=== PATIENT | male | born 1990 | race Caucasian/White ===

== ENCOUNTER 2020-06-03 08:46 | Outpatient (CLI) | payer OTHER, SELFPAY ==
--- NOTE | 2020-06-24 03:07 | WPDHOMESLEEP ---
Sleep Study - Home Unattended Date of Study: 06/03/20 Ordering Provider: Johnny Brown MD Interpreting Physician: Sharita Epps MD Home Sleep Study Type: Watch PAT Height: 1.7 m Weight: 86.183 kg Body Mass Index: 29.7 Neck Circumference (inches): 17 [place]: 12 Reason for Sleep Study insomnia, never feels rested Sleep History Jose Denis is a 30 year-old male who has a difficult time falling asleep and staying asleep. He never feels rested. He has racing thoughts at night. He has depression and anxiety. He occasionally snores and it occasionally is loud enough to bother others. He does not awaken at night with heartburn, belching or coughing. He rarely awakens from sleep feeling short of breath. He has a difficult time waking in the morning. He occasionally has trouble sleeping with a cold. He rarely wakes up gasping for breath at night. He rarely has breathing problems at night reported to him by others. He occasionally sweats excessively at night and occasionally notices his heart pounding or beating irregularly at night. He occasionally falls asleep during the day, rarely involuntarily occasionally while driving. He does not fall asleep during physical effort. He rarely has loss of muscle tone with strong emotion. He rarely has daytime difficulty at work due to excessive sleepiness. 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 He occasionally feels paralyzed on waking or falling asleep. Does not have vivid dreamlike scenes upon awakening or falling asleep. He has never for a to go to sleep. He does not have nightmares. He constantly has racing thoughts through his mind, feelings of sadness depression and anxiety. He rarely has muscular tension, rarely notices parts of his body jerking and rarely kicks at night. He occasionally has crawling and aching feelings in his legs. He rarely has leg pain at night. He does not have morning jaw pain and does not grind his teeth during sleep. He occasionally has bothered by pain during the day, occasionally is awakened by pain at night, occasionally wakes up feeling stiff in the morning with sore, achy muscles, rarely with pain in the neck and spine. He has headaches, palpitations, fatigue, memory problems, insomnia and concentration difficulties. Normal bedtime is 12 midnight taking an hour or longer to fall asleep, typically waking 3 times at night for 30 minutes. While awake, he will go urinate, eat, and try to get back to sleep. He wakes in the morning at 7:00 a.m. He estimates 5 hours of sleep at night. On the weekends, he stays awake as late as 3:00 a.m. still wakes at 7:00 a.m.. He takes naps in the afternoon. He is not refreshed after a short nap. He is usually drowsy in the morning for 3 hours or longer. Habits: Cigarettes 1-2 packs per day. Caffeine 3 servings a day. Alcohol once a week. No recreational drugs. [facility] Past Medical History Medical History (Updated 06/24/20 @ 03:15 by Sharita Epps MD) Anxiety Daytime sleepiness Decreased libido Depression Surgical History Surgical History (Updated 06/24/20 @ 03:16 by Sharita Epps MD) History of tonsillectomy Family History Family History Grandparent Malignant neoplasm of prostate, Onset Age: 72 Family history of lung cancer, Onset Age: 72 Family history of malignant neoplasm of bone, Onset Age: 72 Father Family history of malignant melanoma Social History Social History Smoking status: Current every day smoker Alcohol intake: current Medications Home Medications Medication Instructions Recorded Confirmed Type No Home Medications 03/25/20 03/25/20 History Sleep Procedure The sleep study was completed using C2[employer] LinkT a technically adequate device with seven channels: peripheral arterial tone, actigraphy, body position, snore, respiratory movement, pulse oximetry, sleep st
[2020-06-24 03:50] VITALS: BMI 29.7
== END 2020-06-03 08:47 | disposition home or self-care (01) ==
LOC: ANHCSM 08:47
PROVIDERS: PCP Family Medicine; Visit Provider Family Medicine
DX: G47.00 Insomnia, unspecified (principal); R40.0 Somnolence
CPT/HCPCS: 95800

== ENCOUNTER 2020-10-28 20:19 | Emergency (ER) | payer OTHER, SELFPAY ==
--- NOTE | ~2020-10-28 | CT_ITS ---
EXAMINATION: CT abdomen pelvis wo con DATE: 10/28/2020 23:56 INDICATION: Right flank pain for 2 weeks TECHNIQUE: Computed tomography (CT) of the abdomen and pelvis was performed without intravenous contr ast. Automated exposure control and iterative reconstruction technique were employed. Exam dose: 709 .58 mGy-cm total exam DLP. COMPARISON: None. FINDINGS: Approximately 5 mm nodular density is noted in each of the lower lobes. No infiltrate or co nsolidation at the lung bases. Normal heart size. No pericardial or pleural effusion. The gallbladder is contracted. No bile duct or pancreatic duct dilatation. No hepatic, splenic, pancr eatic, adrenal or renal space-occupying mass lesion. No urinary tract calculus or hydroureteronephros is. The urinary bladder is evacuated. Prostate gland is normal. Normal caliber of the abdominal aorta. No intraperitoneal or retroperitoneal or pelvic mass lesion or adenopathy or ascites. Normal appendix. No bowel obstruction, bowel wall thickening, pneumatosis or intraperitoneal free air . Included skeletal structures are unremarkable. IMPRESSION: 5 mm nodular density in each lower lobe No significant abnormality abdomen. No urinary tract calculi, hydroureteronephrosis Normal appendix Reviewed, dictated and finalized at [facility]. Reviewed, dictated and finalized at [facility]. IMPRESSION: 5 mm nodular density in each lower lobe No significant abnormality abdomen. No urinary tract calculi, hydroureteronephr osis Normal appendix
[2020-10-28 20:31] VITALS: BP 127/78; PULSE 114; RESP 18; TEMP 36.2; O2SAT 96
[2020-10-28 22:49] LABS: Add Urine Microscopic? YES; Appearance Urine Cloudy (Clear); Bacteria Urine Trace /hpf; Bilirubin Urine Negative (Negative); Color Urine Yellow (Yellow); Glucose Urine UA 3+ mg/dL (Negative); Ketones Urine Negative (Negative); Leukocyte Esterase Ur 3+ LEU/UL (Negative); Mucus Urine Moderate /lpf; Nitrate Urine Negative (Negative); Protein Urine 1+ mg/dL (Negative); Specific Grav Ur 1.026 (1.001-1.035); Squamous Epithelial Cell Urine Rare /hpf (Few); Uric Acid Crystals Urine Present /hpf; Urobilinogen Urine Negative mg/dL (<2.0); WBC Urine >75 /hpf
[2020-10-28 22:53] LABS: Blood Urine Negative (Negative)
--- NOTE | 2020-10-28 23:53 | ED.GENADULT ---
HPI - General Adult General Chief complaint: Urogenital-Male <Sebastian Pitts PA-C - Last Filed: 10/29/20 01:01> Stated complaint: right flank pain <DO Morrow Last Filed: 10/29/20 01:01> Time Seen by Provider: 10/28/20 23:43 <DO Morrow Last Filed: 10/29/20 01:01> Source: patient <DO Morrow Last Filed: 10/29/20 01:01> Mode of arrival: ambulatory <Sebastian Pitts PA-C - Last Filed: 10/29/20 01:01> Limitations: no limitations <DO Morrow Last Filed: 10/29/20 01:01> History of Present Illness HPI narrative: Patient is a 30-year-old male who presents to emergency department for evaluation of right side pain for the last 2 weeks off and on noting a aching dull pain in the right flank patient denies similar occurrence in the past patient on arrival is in no distress notes he has been taking ibuprofen for relief patient does not take any medications daily denies any medical history. Patient on arrival in no distress pain is worse with urination <Sebatsian Pitts PA-C - Last Filed: 10/29/20 01:01> Related Data Allergies/adverse reactions: Allergies Allergy/AdvReac Type Severity Reaction Status Date / Time No Known Allergies Allergy Mild Verified 03/25/20 13:43 <DO Morrow Last Filed: 10/29/20 01:01> Review of Systems Review of Systems: All systems reviewed & are unremarkable except as noted in HPI and below <Sebastian Pitts PA-C - Last Filed: 10/29/20 01:01> PMFSH Past Medical History Medical History: Medical History Anxiety Daytime sleepiness Decreased libido Depression <DO Morrow Last Filed: 10/29/20 01:01> Surgical History Surgical History: Surgical History History of tonsillectomy <DO Morrow Last Filed: 10/29/20 01:01> Family History Family History: Family History Grandparent Malignant neoplasm of prostate, Onset Age: 72 Family history of lung cancer, Onset Age: 72 Family history of malignant neoplasm of bone, Onset Age: 72 Father Family history of malignant melanoma <Sebastian Pitts PA-C - Last Filed: 10/29/20 01:01> Social History Social History: Social History Smoking status: Current every day smoker Alcohol intake: current <Sebastian Pitts PA-C - Last Filed: 10/29/20 01:01> Exam Narrative: Exam Narrative: GENERAL: Well-appearing, well-nourished, and in no acute distress. HEAD: Normocephalic, atraumatic. EYES: PERRLA and EOMI. ENT: Nares clear, no rhinorrhea or epistaxis. Mucous membranes moist. CHEST: Clear to auscultation. No respiratory distress. No wheezes rales or rhonchi HEART: Regular rate and rhythm. No murmur heard. Normal peripheral pulses. ABDOMEN: Soft, mild tenderness of the right abdomen without rebound or guarding, nondistended EXTREMITIES: Normal range of motion. No edema. SKIN: Warm, dry, no rash. NEURO: No focal deficits. Alert and oriented x3. Cranial nerves II through XII grossly intact PSYCH: Normal mood and affect. <Sebastian Pitts PA-C - Last Filed: 10/29/20 01:01> Course Course Emergency Course: Patient evaluated in the emergency department will be treated for urinary tract infection referred to urology for further evaluation patient agrees with this plan afebrile nontoxic-appearing was given IV fluids and antibiotics in the emergency department prior to discharge and given reasons to return <Sebastian Pitts PA-C - Last Filed: 10/29/20 01:01> Vital Signs Vital signs: Vital Signs Temperature 97.1 F L 10/28/20 20:31 Pulse Rate 114 H 10/28/20 20:31 Respiratory Rate 18 10/28/20 20:31 Blood Pressure 127/78 10/28/20 20:31 P
[2020-10-29 00:21] LABS: Alanine Aminotransferase 26 U/L (4-50); Albumin Level 4.6 g/dL (3.5-5.1); Alkaline Phosphatase 88 U/L (38-126); Anion Gap 6 mmol/L (8-16); Aspartate Amino Transferase 23 U/L (17-59); Basophils Absolute Auto 0.1 K/mm3 (0.0-0.1); Basophils Percent Auto 0.4 % (0.2-1.2); Bilirubin,Total 0.1 mg/dL (0.2-1.3); Blood Urea Nitrogen 20 mg/dL (9-20); Calcium 9.7 mg/dL (8.4-10.2); Carbon Dioxide 27 mmol/L (22-30); Chloride 106 mmol/L (98-107); Eosinophils Absolute Auto 0.4 K/mm3 (0-0.3); Eosinophils Percent Auto 3.3 % (0-4.4); Estimated CRCL calculation 122 ml/min; Estimated Glomerular Filt Rate > 60; Glucose 89 mg/dL (75-110); Hematocrit 47.3 % (42.0-52.0); Hemoglobin 15.8 g/dL (14.0-18.0); Immature Granulocyte Absolute 0.04 K/mm3 (0.00-0.031); Immature Granulocyte Percent A 0.3 % (0-0.5); Lymphocytes Absolute Auto 2.74 K/mm3 (0.9-3.2); Lymphocytes Percent Auto 20.8 % (18.3-44.2); Mean Corpuscular HGB Conc 33.4 g/dl (32-36); Mean Corpuscular Hemoglobin 31.5 pg (26-34); Mean Corpuscular Volume 94.4 fl (80-100); Mean Platelet Volume 9.1 fl (7.4-10.4); Monocytes Percent Auto 7.7 % (2.6-8.5); Neutrophils Absolute Auto 8.9 K/mm3 (1.3-6.7); Neutrophils Percent Auto 67.5 % (45.5-73.1); Platelet Count Result 249 k/mm3 (150-375); Potassium 4.4 mmol/L (3.4-5.0); Red Blood Count 5.01 M/mm3 (4.6-6.20); Red Cell Distribution Width 12.2 % (11.5-14.5); Sodium 139 mmol/L (137-145); White Blood Count 13.2 K/mm3 (4.5-10.0)
[2020-10-29] MEDS: SODIUM CHLORIDE 0.9% IV 1,000 ML 999 ML IV CONT (00:21)
[2020-10-29 01:40] VITALS: BP 124/78; PULSE 77; RESP 18; O2SAT 100
== END 2020-10-29 01:36 | disposition home or self-care (01) ==
PROVIDERS: Emergency Medicine; Emergency Medicine Emergency Medical Services; Emergency Provider General Practice; PCP Family Medicine
DX: N39.0 Urinary tract infection, site not specified (principal); F17.200 Nicotine dependence, unspecified, uncomplicated
CPT/HCPCS: 36415; 74176; 80053; 81001; 85025; 87086; 87491; 87591; 96361; 96365; 96375; 99284; J0131; J0696; J7030

== ENCOUNTER → 2021-07-25 10:44 | Outpatient (CLI) | payer OTHER, SELFPAY ==
--- NOTE | ~2021-07-25 | CT_ITS ---
EXAMINATION: CT diagnostic chest wo con DATE: 07/25/2021 10:57 INDICATION: Other nonspecific abnormal finding of the lung field TECHNIQUE: Computed tomography (CT) of the chest was performed without intravenous contrast. The dose -length product (DLP) was 154.08 mGy-cm. Automated exposure control and iterative reconstruction tech [employer] were employed. COMPARISON: 10/28/2020 FINDINGS: There are stable nodules of the lower lobes, consistent with old granulomatous disease. No suspicious pulmonary nodule is identified. There is no pleural effusion or pneumothorax. The lungs ar e free of acute opacities. No pathologically enlarged thoracic lymph nodes are identified. The heart size is normal. The visualized osseous structures are unremarkable. IMPRESSION: 1. Stable nodule of the lower lobes, consistent with old granulomatous disease. No suspicious pulmona ry nodule identified. Reviewed, dictated and finalized at [facility]. [employer] IMPRESSION: 1. Stable nodule of the lower lobes, consistent with old granulomatous disease. No suspicious pulmonary nodule identified.
== END ==
PROVIDERS: PCP Family Medicine; Visit Provider Nurse Practitioner Family
DX: R91.8 Other nonspecific abnormal finding of lung field (principal)
CPT/HCPCS: 71250

== ENCOUNTER 2024-09-14 15:44 | Outpatient (CLI) | payer OTHER, SELFPAY ==
--- NOTE | ~2024-09-14 | CT_ITS ---
EXAMINATION:CT diagnostic chest wo con DATE: 09/14/2024 15:58 INDICATION: Other nonspecific abnormal finding of lung field. TECHNIQUE: Computed tomography (CT) of the chest was performed without intravenous contrast. Automate d exposure control and iterative reconstruction technique were employed. The dose-length product (DLP ) was 187.18 mGy-cm. COMPARISON: Chest CT 07/25/2021 FINDINGS: There is a stable 6 mm nodule in right lower lobe. There is a stable 5 mm nodule in left lo wer lobe. There are a few scattered pulmonary nodules measuring 3 mm or less. No pleural effusion. Th e heart size is normal. No pericardial effusion. There is diffuse hepatic steatosis. There is severe thoracic spondylosis. There is mild chronic anterior wedging of T4-T6 vertebral bodies. IMPRESSION: 1. Small pulmonary nodules, likely benign. Reviewed, dictated and finalized at [facility]. [employer]
== END 2024-09-14 15:45 | disposition home or self-care (01) ==
LOC: MICIMG 15:45
PROVIDERS: PCP Family Medicine; Visit Provider Nurse Practitioner Family
DX: R91.8 Other nonspecific abnormal finding of lung field (principal); F17.210 Nicotine dependence, cigarettes, uncomplicated
CPT/HCPCS: 71250